=== PATIENT | male | born 1960 | race Hispanic/Latino ===

== ENCOUNTER 2016-12-08 11:32 | Day surgery (SDC) | payer BC ==
--- NOTE | 2016-12-08 12:14 | Anesthesia Day of Surgery ---
Anesthesia Day of Surgery - Day of Surgery Patient Examined: Yes Patient H&P Reviewed: Yes Patient is NPO: Yes
--- NOTE | 2016-12-08 12:14 | Anesthesia Consultation ---
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
[2016-12-08] MEDS ORDERED: DIPRIVAN 10 MG/ML IV ONE (12:32)
[2016-12-08] MEDS ORDERED: NACL 0.9% 1000 ML 1,000 ML IV SCH (13:00)
[2016-12-08 13:27] VITALS: BP 137/86
--- NOTE | 2016-12-08 13:41 | Post Anesthesia Evaluation ---
- Post Anesthesia Evaluation Patient Participated: Yes Airway Patent: Yes Stable Respiratory Function: Yes Nausea/Vomiting: No Temp > 96.8F: Yes Pain Manageable: Yes Adequeate Hydration: Yes Anesthesia Complications: No Block Receding Appropriately: Not Applicable Patient on Ventilator: No
--- NOTE | 2016-12-08 20:28 | Operative Report ---
ATTENDING SURGEON: Alpesh Le M.D. PRACTICE ARCHITECT: Kameron Sainz M.D. PREOPERATIVE DIAGNOSES: Workup for bariatric surgery, dyspepsia. POSTOPERATIVE DIAGNOSIS: Workup for bariatric surgery. PROCEDURE PERFORMED: Esophagogastroduodenoscopy. INDICATIONS FOR PROCEDURE: The patient is a 56-year-old male on work up for bariatric surgery, has some complaints of dyspepsia. After discussing the risks and benefits of procedure, he has had consent for an esophagogastroduodenoscopy. DESCRIPTION OF PROCEDURE: We proceeded to bring the patient to the endoscopic suite. He was placed on the stretcher in the left lateral position. MAC anesthesia was given by the anesthesia team. A timeout was called, the patient and procedure were correct. So, we proceeded to pass the endoscope into the oropharynx down to the esophagus, stomach and duodenum. Pictures were taken out of duodenum and then the endoscope was retrieved back to the stomach after insufflation of duodenum and no gross abnormalities were visualized after carefully inspecting the mucosa circumferentially. The same was done on the stomach. Then, we retroflexed the scope and visualized the hiatus. No gross abnormalities were seen. So, the stomach was desufflated and the endoscope was retrieved into esophagus that was examined circumferentially. No gross abnormalities were visualized. So, we proceeded to retrieve the endoscope completely. The patient tolerated very well the procedure and was sent to recovery room. The attending, Dr. Le, was present to the cheema portion of the procedure. JOB# [id number] DARÍO/AUBREE
== END 2016-12-08 11:33 | disposition home or self-care (01) ==
LOC: GIO 11:32
PROVIDERS: ATTEND Specialist
DX: R10.13 Epigastric pain (principal); I10 Essential (primary) hypertension; I25.10 Atherosclerotic heart disease of native coronary artery without angina pectoris; K21.9 Gastro-esophageal reflux disease without esophagitis; E66.9 Obesity, unspecified; Z68.41 Body mass index [BMI] 40.0-44.9, adult; Z86.73 Personal history of transient ischemic attack (TIA), and cerebral infarction without residual deficits; Z72.89 Other problems related to lifestyle; Z87.891 Personal history of nicotine dependence; Z96.641 Presence of right artificial hip joint; Z95.5 Presence of coronary angioplasty implant and graft
CPT/HCPCS: 43235; J2704; J7030